=== PATIENT | female | born 1990 | race Caucasian/White ===

== ENCOUNTER 2016-10-03 05:17 | Emergency (ER) | payer OTHER ==
[~2016-10-03] VITALS: Ht 167.6 cm; Wt 68.0 kg
[~2016-10-03 05:17] MED LIST: HYDR-971 PO; NORG1TAB13 PO
[2016-10-03] MEDS ORDERED: ACETAMINOPHEN 325 MG TABLET. PO ONE (05:45)
[2016-10-03] MEDS ORDERED: ONDANSETRON PF 4 MG/2 ML VIAL. IV ONE (05:45)
[2016-10-03] MEDS ORDERED: IV NORMAL SALINE 1000ML BAG 1,000 ML IV ONE ×2 (05:45→07:30)
--- NOTE | 2016-10-03 05:49 | PHYS DOC ---
Past Medical History Past Medical History: Other Additional Past Medical Histor: CDIFF Past Surgical History: No Surgical History Alcohol Use: None Drug Use: None Adult General Chief Complaint Chief Complaint: NEURO SYMPTOMS/DEFICITS HPI HPI This 26-year-old female who states she's had significant migraine headache with some nausea but no vomiting. States her symptoms started after she was working out with her at home around midnight while doing an exercise routine. She then developed some mild headache and lightheadedness. She then developed some difficulty speaking around 2 AM. She has some mild slurring to her speech. She is alert and oriented and able to follow basic commands. She denies any fever or chills. She states her headache is rated an 8/10 on the pain scale. She denies any significant medical problems. Review of Systems Review of Systems Constitutional: Denies fever or chills [] Eyes: Denies change in visual acuity, redness, or eye pain [] HENT: Denies nasal congestion or sore throat [] Respiratory: Denies cough or shortness of breath [] Cardiovascular: No additional information not addressed in HPI [] GI: Denies abdominal pain, nausea, vomiting, bloody stools or diarrhea [] : Denies dysuria or hematuria [] Musculoskeletal: Denies back pain or joint pain [] Integument: Denies rash or skin lesions [] Neurologic: Has headache, focal weakness or sensory changes [] Endocrine: Denies polyuria or polydipsia [] Current Medications Current Medications Current Medications Medications (Trade) Dose Ordered Sig/[facility] Start Time Stop Time Status Last Admin Dose Admin Acetaminophen (Tylenol) 650 mg 1X ONCE 10/03/16 05:45 10/03/16 05:46 Ondansetron HCl 4 mg 4 mg 1X ONCE 10/03/16 05:45 10/03/16 05:46 Sodium Chloride (Iv Sodium Chloride 0.9% 1000ml Bag) 1,000 ml @ 1,000 mls/hr 1X ONCE 10/03/16 05:45 10/03/16 06:44 Allergies Allergies Allergies Coded Allergies Type Severity Reaction Last Updated Verified No Known Drug Allergies 08/30/16 No Physical Exam Physical Exam Constitutional: Well developed, well nourished, no acute distress, non-toxic appearance. [] HENT: Normocephalic, atraumatic, bilateral external ears normal, oropharynx moist, no oral exudates, nose normal. [] Eyes: PERRLA, EOMI, conjunctiva normal, no discharge. [] Neck: Normal range of motion, no tenderness, supple, no stridor. [] Cardiovascular:Heart rate regular rhythm, no murmur [] Lungs & Thorax: Bilateral breath sounds clear to auscultation [] Abdomen: Bowel sounds normal, soft, no tenderness, no masses, no pulsatile masses. [] Skin: Warm, dry, no erythema, no rash. [] Back: No tenderness, no CVA tenderness. [] Extremities: No tenderness, no cyanosis, no clubbing, ROM intact, no edema. [] Neurologic: Alert and oriented X 3, normal motor function, normal sensory function, no focal deficits noted, NIH stroke scale is zero. [] Psychologic: Affect normal, judgement normal, mood normal. [] EKG EKG [] Radiology/Procedures Radiology/Procedures [] Course & Med Decision Making Course & Med Decision Making Pertinent Labs and Imaging studies reviewed. (See chart for details) This otherwise healthy 26-year-old female who has developed headache and lightheadedness with some mild trouble speaking after an exercise routine earlier this morning will have full laboratory workup including a head CT and blood work. IV fluids will be administered. I will be signing her case out to Dr. Polanco, who will also evaluate her and determine her ultimate disposition. Jayna Disclaimer Jayna Disclaimer This electronic medical record was generated, in whole or in part, using a voice recognition dictation system. Departure Departure Referrals: NO PCP (PCP) GAB CARREON DO Oct 03, 2016 05:49
[2016-10-03 05:53] LABS: BASO % 0 % (0-3); EOS % 2 % (0-3); HEMATOCRIT 40.5 % (36.0-47.0); HEMOGLOBIN 14.1 g/dL (12.0-15.5); LYMPH % 24 % (24-48); MEAN CORPUSCULAR HEMOGLOBIN 31 pg (25-35); MEAN CORPUSCULAR HGB CONC 35 g/dL (31-37); MEAN CORPUSCULAR VOLUME 90 fL (79-100); MONO % 5 % (0-9); NEUT % 69 % (31-73); PLATELET COUNT 203 x10^3/uL (140-400); RED CELL DISTRIBUTION WIDTH 12.1 % (11.5-14.5); WHITE BLOOD COUNT 8.3 x10^3/uL (4.0-11.0)
[2016-10-03 06:03] LABS: CALCIUM 11.4 mg/dL (8.5-10.1); CREATININE 0.5 mg/dL (0.6-1.0); GFR 150.3; POTASSIUM 3.7 mmol/L (3.5-5.1)
[2016-10-03 06:12] LABS: BILIRUBIN,URINE NEGATIVE (NEG); GLUCOSE,URINE NEGATIVE (NEG); NITRITE,URINE NEGATIVE (NEG); PH,URINE 5.5; PROTEIN,URINE NEGATIVE (NEG-TRACE); UROBILINOGEN,URINE 0.2 mg/dL (0.2 mg/dL)
--- NOTE | 2016-10-03 06:24 | RAD ---
INDICATION: Headache COMPARISON: None TECHNIQUE: Axial CT images obtained through the head. One or more of the following individualized dose reduction techniques were utilized for this examination: 1. Automated exposure control; 2. Adjustment of the mA and/or kV according to patient size; 3. Use of iterative reconstruction technique. FINDINGS: No midline shift. Ventricles and sulci within normal limits in size for the patients age. Basilar cistern patent. No gross hemorrhage or intracranial mass. No displaced skull fracture. IMPRESSION: No acute intracranial hemorrhage. Electronically signed by: Sly Rivera (Oct 03, 2016 06:22:59)
[2016-10-03 06:27] LABS: BACTERIA,URINE FEW /HPF (0-FEW); RBC,URINE 0 /HPF (0-2); SQUAMOUS EPITHELIAL CELL,UR MOD /LPF
--- NOTE | 2016-10-03 06:32 | EKG ---
[facility] [address] [place] [address] Test Date: 2016-10-03 Test Time: 05:58:25 Pat Name: CONSUELO RICK Department: Room: Gender: F Biology Department Chair: : 1990 Requested By: GAB CARREON Order Number: [id number] Reading MD: Sophie Cramer Measurements Intervals Diana Rate: 56 P: 31 MT: 154 QRS: 7 QRSD: 96 T: 23 QT: 368 QTc: 357 Interpretive Statements SINUS RHYTHM NORMAL ECG Electronically Signed On 10-05-2016 20:14:18 RESEARCH AIDE by Sophie Cramer
[2016-10-03] MEDS ORDERED: DIPHENHYDRAMINE 50 MG/ML VIAL IVP ONE (07:30)
[2016-10-03] MEDS ORDERED: METOCLOPRAMIDE HCL 10 MG/2 ML VIAL. IV ONE (07:30)
[2016-10-03 07:43] VITALS: BP 134/80
[2016-10-03] MEDS ORDERED: GADOBUTROL 7.5 MMOL/7.5 ML VIAL IV ONE (08:15)
--- NOTE | 2016-10-03 08:54 | RAD ---
BRAIN WO/W CONTRAST Indication: no priors....GAVE 7ML GADAVIST...PT C/O HEADACHE, VISION CHANGES, WITH LEFT SIDE NUMBNESS Reason: vision changes numbness in left arm stuttering speech / Spl. Instructions: / History: COMPARISON: CT head from earlier the same date. TECHNIQUE: Axial diffusion weighted imaging was obtained. Additional sagittal T1, axial T1, axial FLAIR, and axial T2 weighted imaging of the brain was also performed. Postcontrast T1 weighted imaging was also performed after intravenous administration of gadolinium based contrast. FINDINGS: There is a single very faint focus of FLAIR signal hyperintensity in the centrum semiovale of the left frontal lobe. No abnormal intracranial enhancement. No evidence of acute intracranial hemorrhage. No restricted diffusion to indicate acute infarct. No extra-axial fluid collections. No midline shift or mass effect. Ventricular size is appropriate. Midline structures have a normal anatomic configuration. Pituitary gland and infundibulum are unremarkable. Basal cisterns are patent. Arterial flow voids at the skull base and major dural venous sinuses are maintained. Globes and orbits are unremarkable. Paranasal sinuses and mastoid air cells are clear. IMPRESSION: - No acute or recent infarct. No abnormal enhancement or mass. - There is a single nonspecific focus of faint FLAIR signal hyperintensity in the centrum semiovale on the left. Differential considerations include a small demyelinating lesion, sequelae of migraine headaches, or sequelae of previous injury. Electronically signed by: Ryan Rush (Oct 03, 2016 08:53:01)
== END 2016-10-03 09:12 | disposition home or self-care (01) ==
LOC: ER 05:17
DX: G43.909 Migraine, unspecified, not intractable, without status migrainosus (principal); R42 Dizziness and giddiness; R47.9 Unspecified speech disturbances
CPT/HCPCS: 36415; 70450; 70553; 80048; 81001; 81025; 82947; 85027; 87086; 93005; 96361; 96374; 96375; 99285; J1200; J2405; J2765; J7030; A9585

== ENCOUNTER 2020-04-13 10:37 | Outpatient (CLI) | payer BC ==
[2020-04-13 10:35] VITALS: BP 145/87
[~2020-04-13 10:37] MED LIST changes: +HYDR-3164 PO; -HYDR-971 PO
[2020-04-13 11:03] VITALS: BP 131/72
--- NOTE | 2020-04-13 11:19 | NUR ---
Discharge Note: CONSUELO RICK Discharge instructions and discharge home medications reviewed with Patient and a copy given. All questions have been answered and understanding verbalized. The following instructions and handouts were given: Care After Lumbar Puncture. Discontinued lines and drains: No IV this visit. Patient discharged to home with father via private vehicle.
--- NOTE | 2020-04-13 13:45 | RAD ---
Fluoroscopically Guided Lumbar Puncture for CSF Sampling: Clinical History: head ache. Procedure: The relative benefits, risks and alternatives to the procedure were discussed and verbal written informed consent was obtained. Procedural pause was observed. The patient was placed prone and slightly oblique on the fluoroscopic table and bony landmarks were used to plan for a lumbar puncture. Patient has 6 lumbar type vertebrae, inferior most lumbar type vertebra considered L6 for reporting purposes. The patient was carefully prepped and draped in a sterile fashion and with local anesthetic and sterile technique, a 22-gauge needle was advanced at the left L3-L4 level. Clear CSF was seen and approximately 12 cc of clear fluid was aspirated and sent for testing. The procedure was well tolerated and the patient was sent to Recovery in good condition. Patient was later sent home in good condition with instructions to contact physician should if developed signs or symptoms of pain, bleeding or infection. The patient was also encouraged to drink of oral fluids to decrease chances of having a spinal headache. Total patient fluoro time: 0.6 minutes. Impression: Status post fluoroscopic guided lumbar puncture for spinal tap. 12 mL of clear CSF were collected and sent for laboratory analysis per referring physician request. Electronically signed by: Lenora Mensah MD (04/13/2020 1:42 PM) [id number]
== END 2020-04-13 11:15 | disposition home or self-care (01) ==
LOC: RAD 10:37
PROVIDERS: ATTEND Nurse Practitioner Family
DX: G43.909 Migraine, unspecified, not intractable, without status migrainosus (principal)
CPT/HCPCS: 62270; 62328

== ENCOUNTER → 2020-04-17 | Outpatient (CLI) | payer BC ==
[2020-04-13 11:03] VITALS: BP 131/72
[2020-04-13 11:49] LABS: CSF CLARITY CLEAR; CSF COLOR COLORLESS
[2020-04-13 11:50] LABS: CSF RBC COUNT 0 /cmm (Not Established); CSF WBC COUNT 0 /cmm (Not Established)
[2020-04-13 15:58] LABS: CSF PROTEIN 25.9 mg/dL (15.0-45.0)
--- NOTE | 2020-04-17 12:09 | RAD ---
EXAM: Head MRA without contrast; head MRV without contrast. HISTORY: Chronic headaches. TECHNIQUE: Magnetic resonance angiography and venography of the head was performed without contrast. 3-dimensional [id number] and maximum intensity projection images were obtained. COMPARISON: Brain MRI performed 10/03/2016. FINDINGS: Head MRV: There is suspected developmental asymmetry in the caliber of the right greater than left internal jugular veins and sigmoid and transverse dural venous sinuses. The inferior sagittal sinus is not completely seen, likely due to technique. No convincing dural venous sinus thrombosis is seen. Head MRA: There is no evidence of hemodynamically significant stenosis, occlusion or aneurysm. The anterior communicating artery and bilateral posterior communicating arteries are patent. The vertebral arteries appear to be codominant. IMPRESSION: 1. No evidence of hemodynamically significant stenosis or aneurysm involving the intracranial arteries. Note is made that a small focus of signal change within the left centrum semiovale demonstrated on the prior brain MRI is not seen on this exam due to differences in imaging technique. 2. 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 There is also incomplete visualization of the inferior sagittal sinus which is likely due to imaging technique. There is no convincing dural venous sinus thrombosis. If there is continuing concern, a contrast-enhanced MR venogram may be useful for better characterization. PQRS Compliance Statement - Stenosis calculations for CT, MR and conventional angiography are based upon measurement of the distal ICA diameter in accordance with the NASCET methodology. Stenosis calculations for carotid ultrasound studies are derived from validated velocity criteria which are known to correlate with the NASCET methodology. Electronically signed by: Lisa Castrejon MD (04/17/2020 12:06 PM) [id number]
== END | disposition home or self-care (01) ==
LOC: MRI 10:17
PROVIDERS: ATTEND Nurse Practitioner Family
DX: G43.709 Chronic migraine without aura, not intractable, without status migrainosus (principal)
CPT/HCPCS: 70544; 82945; 84157; 87015; 87071; 87075; 87102; 87252; 89051